=== PATIENT | female | born 1955 | race Caucasian/White ===

== ENCOUNTER 2019-11-06 11:38 | Emergency (ER) | payer BC, OTHER ==
[~2019-11-06] VITALS: Ht 165.1 cm; Wt 63.5 kg
[~2019-11-06 11:38] MED LIST: CLARITIN; Z.0.CRESTOR10 MG PO; Z.0.EVISTA60 MG PO; Z.0.NIASPAN1000 MG PO
--- OUTSIDE RECORDS SUMMARY | 2019-11-06 11:41 | XMS REPORT ---
Author Author [facility] Address Unknown Phone Unavailable Care Team Providers Care Skilled Helper Name Role Phone Unavailable Unavailable Problems This patient has no known problems. Allergies, Adverse Reactions, Alerts This patient has no known allergies or adverse reactions. Medications This patient has no known medications.
[2019-11-06] MEDS ORDERED: PROMETHAZINE 12.5MG/ NACL 0.9% 12.5 MG/50 ML BAG IV ONE (12:00)
[2019-11-06 12:04] LABS: BASOPHILS # (AUTO) 0.1 (0.0-0.1); BASOPHILS % 0.5 % (0.0-1.0); EOSINOPHILS # (AUTO) 0.2 (0.0-0.4); EOSINOPHILS % 1.9 % (0.0-6.0); HEMATOCRIT 40.6 % (34.2-44.1); HEMOGLOBIN 13.3 g/dL (12.0-16.0); LYMPHOCYTES # (AUTO) 2.7 (1.0-3.2); LYMPHOCYTES % 22.6 % (18.0-39.1); MEAN CORPUSCULAR HEMOGLOBIN 28.3 pg (28-32); MEAN CORPUSCULAR HGB CONC 32.8 g/dL (31-35); MEAN CORPUSCULAR VOLUME 86.4 fL (81-99); MONOCYTES # (AUTO) 0.9 (0.2-0.8); MONOCYTES % 7.2 % (4.4-11.3); NEUTROPHILS # (AUTO) 7.9 (2.1-6.9); NEUTROPHILS % 65.3 % (38.7-80.0); PLATELET COUNT 279 x10e3/uL (140-360); RED CELL DISTRIBUTION WIDTH 13.6 % (11.7-14.4)
[2019-11-06 12:15] LABS: INR 0.94; PROTHROMBIN TIME 13.1 seconds (11.9-14.5)
[2019-11-06 12:16] LABS: PARTIAL THROMBOPLASTIN TIME 32.1 seconds (23.8-35.5)
[2019-11-06] MEDS ORDERED: DIPHENHYDRAMINE HCL INJ 50 MG/ML VIAL IV ONE (12:30)
[2019-11-06 12:33] LABS: ALANINE AMINOTRANSFERASE 11 IU/L (0-55); ALBUMIN 3.8 g/dL (3.5-5.0); ALBUMIN/GLOBULIN RATIO 1.1 (0.8-2.0); ALKALINE PHOSPHATASE 79 IU/L (40-150); ANION GAP 17.2 mmol/L (8-16); BLOOD UREA NITROGEN 17 mg/dL (7-26); BUN/CREATININE RATIO 22 (6-25); CALCIUM 9.2 mg/dL (8.4-10.2); CARBON DIOXIDE 18 mmol/L (22-29); CHLORIDE 108 mmol/L (98-107); CREATININE, SERUM 0.79 mg/dL (0.57-1.11); EST GLOMERULAR FILTRATION RATE > 60 ML/MIN (60-); GLUCOSE 119 mg/dL (74-118); POTASSIUM 3.2 mmol/L (3.5-5.1); SODIUM 140 mmol/L (136-145)
[2019-11-06 12:46] LABS: CREATINE KINASE 81 IU/L (29-168)
[2019-11-06] MEDS ORDERED: HYDRALAZINE HCL 20 MG/ML VIAL IV ONE (13:00)
[2019-11-06] MEDS ORDERED: SODIUM CHLORIDE 0.9% 500ML 500 ML IV ONE (13:00)
[2019-11-06] MEDS ORDERED: NICARDIPINE 20MG/200ML PREMIX 200 ML IV SCH (13:15)
[2019-11-06] MEDS ORDERED: NICARDIPINE 20MG/200ML PREMIX 200 ML ONE (13:23)
--- NOTE | 2019-11-06 13:28 | Diagnostic Imaging Report ---
Examination: CT head without contrast Clinical Indication: Severe headaches. Technique: Transaxial noncontrast images from the skull base through the vertex were obtained. Sagittal and coronal reformatted images were done. Dose modulation, iterative reconstruction, and/or weight based adjustment of the mA/kV was utilized to reduce the radiation dose to as low as reasonably achievable. Comparison: None. Findings: Scalp: No abnormalities. Bones: Intact. No fractures. No blastic or lytic lesions. Brain sulci: Appropriate for patient's age. Ventricles: As below. Extra-axial space: There is diffuse subarachnoid hemorrhage in the posterior greater than anterior aspect of the suprasellar cistern, interpeduncular, prepontine, pre-medullary and cerebellopontine and cerebellomedullary cisterns. The hemorrhage extends into the lateral (occipital horns) and fourth ventricles with diffuse enlargement of the ventriclar system. Parenchyma: There are confluent areas of low-attenuation within subcortical and periventricular white matter, nonspecific, but could represent microvascular ischemic disease. No masses, hemorrhage, or acute or chronic cortical based vascular insults. Suprasellar region: No abnormalities. Craniocervical junction: The foramen magnum is patent. No Chiari one malformation. Impression: 1. Diffuse subarachnoid hemorrhage, concerning for ruptured aneurysm. 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 2. Chronic microvascular ischemic change. Dr. Renee Menard discussed findings with Dr. Shell on 11/06/2019 at 1319 hours. Signed by: Dr. Renee Menard M.D. on 11/06/2019 1:25 PM
--- NOTE | 2019-11-06 13:33 | Diagnostic Imaging Report ---
Examination: CT CERVICAL SPINE WO CONTRAST HISTORY:Neck pain and injury. COMPARISON:None. TECHNIQUE: Multidetector helical axial images were obtained without contrast from the foramen magnum to T1. Coronal and sagittal reformatted images were done. Bone and soft tissue windows were evaluated. Dose modulation, iterative reconstruction, and/or weight based adjustment of the mA/kV was utilized to reduce the radiation dose to as low as reasonably achievable. FINDINGS: Alignment:Normal alignment and lordosis. Vertebrae: Normal height and density. No acute fracture, infection or neoplasm. Disc space heights: Normal height. Caliber of spinal canal: Developmentally normal. The intracranial subarachnoid hemorrhage extends inferiorly to the anterior aspect of the thecal sac. Posterior fossa and craniocervical junction: Foramen magnum patent. No Chiari 1 malformation. Soft tissues: No abnormality. Degenerative changes: No disc bulge/ herniation or foraminal or canal stenosis. Visualized lung apices: No abnormalities. IMPRESSION: Extension of intracranial subarachnoid hemorrhage inferiorly to the anterior aspect of the thecal sac. No acute fracture. Signed by: Dr. Renee Menard M.D. on 11/06/2019 1:30 PM
[2019-11-06 14:01] VITALS: BP 160/65
== END 2019-11-06 14:06 | disposition short-term general hospital (02) ==
LOC: ER 11:38
DX: I60.9 Nontraumatic subarachnoid hemorrhage, unspecified (principal); G43.909 Migraine, unspecified, not intractable, without status migrainosus; M54.2 Cervicalgia; R11.2 Nausea with vomiting, unspecified; E78.5 Hyperlipidemia, unspecified; Z85.3 Personal history of malignant neoplasm of breast
CPT/HCPCS: 36415; 70450; 72125; 80053; 82550; 82553; 84484; 85025; 85610; 85730; 93005; 99284; J1200; J2550

== ENCOUNTER → 2022-07-01 | Outpatient (CLI) | payer MEDICARE | LOC: MRI 11:57 | PROVIDERS: ATTEND Specialist | DX: S70.02XA Contusion of left hip, initial encounter (principal); M84.352A Stress fracture, left femur, initial encounter for fracture ==

== ENCOUNTER → 2022-10-22 | Outpatient (CLI) | payer MEDICARE | LOC: US 11:47 | PROVIDERS: ATTEND Otolaryngology | DX: K11.8 Other diseases of salivary glands (principal) | CPT/HCPCS: 76536 ==